=== PATIENT | male | born 1990 | race African-American/Black ===

== ENCOUNTER 2021-01-20 13:42 | Emergency (ER) | payer OTHER, SELFPAY ==
[2021-01-20 13:56] VITALS: BP 164/80; PULSE 90; RESP 16; TEMP 36.6; O2SAT 100
--- NOTE | 2021-01-20 15:52 | PC.NURSE ---
[facility] at bedside for pt assessment.
--- NOTE | 2021-01-20 15:56 | ED.WOUNDLAC ---
HPI - Wound/Laceration General Chief Complaint: Wound/Laceration Stated Complaint: wound R inner thigh Time Seen by Provider: 01/20/21 15:27 Source: patient Mode of arrival: ambulatory Limitations: no limitations History of Present Illness HPI narrative: This is a 30 year old male that presents to the ER for wounds to the legs present over the last 3 days. Reports he was outside camping. Noted a possible bug bite to the right leg on Wednesday. Reports Wednesday he noted an area of the left leg. The areas have increased in size on redness since onset which prompted him to be seen. The area is a little painful and itchy. Denies fever or drainage. Related Data Allergies Allergy/AdvReac Type Severity Reaction Status Date / Time Penicillins Allergy Unknown Verified 01/20/21 15:01 Review of Systems Review of Systems: Narrative: CONSTITUTIONAL: Denies fever SKIN: Reports rash and itching. All systems reviewed & are unremarkable except as noted in HPI and below PMFSH Past Medical History Medical History (Updated 01/20/21 @ 16:04 by Didi Maldonado PA-C) No active medical problems Social History Social History (Updated 01/20/21 @ 15:59 by Didi Maldonado PA-C) Substance use: never Exam Narrative: Exam Narrative: GENERAL: Well-appearing, well-nourished, and in no acute distress. HEAD: Normocephalic, atraumatic. EYES: EOMI. EXTREMITIES: Normal range of motion. No edema. Right inner thigh with small bug bite with moderate area of redness surrounding. Left inner thigh with small bug bite with small area of redness surrounding. No fluctuance to these areas to suggest abscess. Normal DP pulses. SKIN: Warm, dry, no rash. NEURO: No focal deficits. Alert and oriented x3. PSYCH: Normal mood and affect Course Vital Signs Vital signs: Vital Signs Temperature 98 F 01/20/21 13:56 Pulse Rate 90 01/20/21 13:56 Respiratory Rate 16 01/20/21 13:56 Blood Pressure 164/80 H 01/20/21 13:56 Pulse Oximetry 100 01/20/21 13:56 Temperature 98 F 01/20/21 13:56 Pulse Rate 90 01/20/21 13:56 Respiratory Rate 16 01/20/21 13:56 Blood Pressure 164/80 H 01/20/21 13:56 Pulse Oximetry 100 01/20/21 13:56 MDM - Wound/Laceration MDM Narrative Medical decision making narrative: Patient presents to the emergency department with possible bug bites after camping. Moderate surrounding redness of these areas. No fluctuance to suggest abscess. Patient instructed on antihistamines for itching. Will be started on oral antibiotics for possible cellulitis. He is to follow-up with primary care doctor. He was given warnings to return to the ER Critical Care Time Critical Care Time Critical Care Time: No Discharge Plan Discharge Clinical Impression: Cellulitis Qualifiers: Site of cellulitis: extremity Site of cellulitis of extremity: lower extremity Laterality: right Qualified Code(s): L03.115 - Cellulitis of right lower limb Patient Disposition: Home, Self-Care Condition: Stable Instructions: Antibiotic Form, Cellulitis (ED) Additional Instructions: Return to the emergency department if you experience fever, increasing redness and swelling of your wounds, abnormal drainage from your wounds, or any other symptoms that are concerning to you Take oral antibiotic as prescribed. Take a Pepcid and Claritin daily for itching. Benadryl as needed for severe itching Follow-up with primary care doctor Prescriptions: New doxycycline hyclate 100 mg capsule 100 mg PO BID 7 Days Qty: 14 RF: 0 Follow-up/Referrals: Carl Yi MD [Physician] - 1 Week PHYSICIAN,INTERNET SPECIALIST [Primary Care Provider] -
[2021-01-20 16:22] VITALS: BP 145/91; PULSE 90; RESP 16; O2SAT 97
== END 2021-01-20 16:24 | disposition home or self-care (01) ==
PROVIDERS: Emergency Provider Emergency Medicine
DX: L03.115 Cellulitis of right lower limb (principal)
CPT/HCPCS: 99283